=== PATIENT | female | born 1980 | race African-American/Black ===

== ENCOUNTER 2016-09-24 01:16 | Emergency (ER) | payer OTHER ==
[~2016-09-24] VITALS: Ht 162.6 cm; Wt 120.4 kg
[~2016-09-24 01:16] MED LIST: 12 HOUR DECONG120 M1 PO; BACTRIM,SEPT1 TABLET PO; BENTYL20 MG PO; CETIRIZINE HCL10 M2 PO; CIPRO500 MG PO; COLACE100 MG PO; ERGOCALCIF50000 UNIT PO; FERROUS SULFAT325 MG PO; FERROUS SULFATE; FIORICET WI1 CAPSULE PO; FLONASE16 G1 BOTH NARES; FOLIC ACID; FOLIC ACID1 MG PO; GLYBURIDE5 MG PO; IRON325 MG PO; KEFLEX500 MG PO; LANTUS 10100 UNITS/ SC; LORTAB 5-325 M1 EACH PO; METFORMIN; METFORMIN HCL1000 MG PO; METFORMIN HCL500 MG PO; MOTRIN600 MG PO; NAPROSYN500 MG PO; NAPROXEN500 MG PO; OXYCODONE-APAP1 EACH PO; PERCOCET 5/31 TABLET PO; PHENERGAN25 MG PR; PYRIDIUM200 MG PO; REGLAN10 MG PO; ROXICODONE5 MG PO; ZOFRAN ODT4 MG PO; ZOFRAN4 MG PO; ZYRTEC10 M2 PO
[2016-09-24 02:57] VITALS: BP 137/99
== END 2016-09-24 02:48 | disposition home or self-care (01) ==
LOC: EME 01:16
DX: S93.501A Unspecified sprain of right great toe, initial encounter (principal); W22.09XA Striking against other stationary object, initial encounter; Z91.041 Radiographic dye allergy status; Z88.6 Allergy status to analgesic agent; F17.200 Nicotine dependence, unspecified, uncomplicated
CPT/HCPCS: 73610; 73630; 99281; 99284

== ENCOUNTER 2018-01-05 21:13 | Emergency (ER) | payer OTHER ==
[~2018-01-05] VITALS: Ht 162.6 cm; Wt 132.8 kg
[2018-01-05 22:44] LABS: CHLORIDE 104 mEq/L (99-109); POTASSIUM 4.3 mEq/L (3.7-5.4); SODIUM 135 mEq/L (136-147)
[2018-01-05 22:46] LABS: GLUCOSE 186 mg/dL (70-99); HEMATOCRIT 31.5 % (36.0-46.0); HEMOGLOBIN 10.2 G/DL (11.9-15.5); MCH 24.2 PG (29.0-34.0); MCHC 32.4 G/DL (30.0-36.0); MCV 74.8 FL (83-99); PLATELET COUNT 459 K/uL (156-360); RBC DIS.WIDTH-CV 16.8 % (11.8-14.6); RBC DIS.WIDTH-SD 45.2 % (39-53); RED BLOOD COUNT 4.21 M/uL (3.80-5.20)
[2018-01-05 22:50] LABS: CREATININE 0.8 mg/dL (0.6-1.3); GFR ESTIMATE (CALCULATED) > 59 mL/min/; UREA NITROGEN (BUN) 8 mg/dL (9-23)
[2018-01-05 22:55] LABS: TROP-I INTERPRETATION NEGATIVE; TROPONIN-I 0.01 ng/mL (0.0-0.30)
[2018-01-05 23:18] LABS: CARBON DIOXIDE (BICARBONATE) 26.7 MEQ/L (20-31)
[2018-01-06 01:51] LABS: CHLORIDE 106 mEq/L (99-109); POTASSIUM 4.6 mEq/L (3.7-5.4); SODIUM 136 mEq/L (136-147)
[2018-01-06 01:53] LABS: GLUCOSE 242 mg/dL (70-99)
[2018-01-06 01:57] LABS: CREATININE 0.8 mg/dL (0.6-1.3); GFR ESTIMATE (CALCULATED) > 59 mL/min/
[2018-01-06 01:58] LABS: UREA NITROGEN (BUN) 10 mg/dL (9-23)
[2018-01-06] MEDS ORDERED: PREDNISONE20 MG PO (02:00)
[2018-01-06 02:06] LABS: TROP-I INTERPRETATION NEGATIVE; TROPONIN-I < 0.01 ng/mL (0.0-0.30)
[2018-01-06 02:31] VITALS: BP 135/80
== END 2018-01-06 02:33 | disposition home or self-care (01) ==
LOC: EME 21:13
PROVIDERS: Physician Assistant
DX: J45.901 Unspecified asthma with (acute) exacerbation (principal); J06.9 Acute upper respiratory infection, unspecified; R60.0 Localized edema; E11.9 Type 2 diabetes mellitus without complications; M19.90 Unspecified osteoarthritis, unspecified site; F17.200 Nicotine dependence, unspecified, uncomplicated; Z90.49 Acquired absence of other specified parts of digestive tract; Z79.4 Long term (current) use of insulin; Z88.1 Allergy status to other antibiotic agents; Z88.6 Allergy status to analgesic agent; Z91.041 Radiographic dye allergy status
CPT/HCPCS: 71046; 80048; 82803; 83880; 84484; 85027; 85379; 93005; 94640; 94640 76; 99281; 99285; J2930; J7030